=== PATIENT | male | born 1980 | race Native Hawaiian/Other Pacific Islander ===

== ENCOUNTER 2021-03-02 10:11 | Inpatient (IN) | payer OTHER, BC ==
[2021-03-02 10:46] VITALS: BMI 32.5
[2021-03-02 11:34] LABS: HEMATOCRIT 32.2 % (35.4-49); HEMOGLOBIN 10.7 GM/dL (11.7-16.9); MCH 30.5 pg (25.7-33.7); MCHC 33.3 g/dl (32.0-35.9); MEAN CELL VOLUME 91.8 fl (80-96); MEAN PLT VOLUME 6.9 fl (7.5-11.1); PLATELET COUNT 272 10^3/uL (134-434); RBC 3.51 M/mm3 (4.00-5.60); RDW 15.7 % (11.9-15.9); WHITE BLOOD COUNT 3.2 K/mm3 (4.0-10.0)
[2021-03-02 11:42] LABS: INR 1.09 (0.83-1.09); PROTHROMBIN TIME (PATIENT) 13.2 SEC (9.7-13.0)
[2021-03-02 11:54] LABS: CALCIUM 9.6 mg/dL (8.5-10.1)
[2021-03-02 11:55] LABS: ALBUMIN 3.9 g/dl (3.4-5.0); BLOOD UREA NITROGEN 50.5 mg/dL (7-18); MAGNESIUM 1.7 mg/dL (1.8-2.4)
[2021-03-02 11:58] LABS: CREATININE 3.3 mg/dL (0.55-1.3)
[2021-03-02 11:59] LABS: BILIRUBIN,TOTAL 0.7 mg/dL (0.2-1)
[2021-03-02 12:00] LABS: TOT PROT 7.2 g/dl (6.4-8.2)
[2021-03-02 12:03] LABS: LDH 568 U/L (87-246); N-TERMINAL BNP 5507.2 pg/ml (5-125)
[2021-03-02] MEDS ORDERED: DEXTROSE 50%-WATER - 25 GM/50 ML VIAL IVPUSH ONE (12:13)
[2021-03-02] MEDS ORDERED: INSULIN REGULAR HUMAN 100 UNITS/ML *VIAL IVPUSH ONE (12:13)
[2021-03-02] MEDS ORDERED: CALCIUM GLUCONATE 10% - 1,000 MG/10 ML VIAL IVPUSH ONE (12:13)
[2021-03-02 12:15] LABS: VENOUS BASE EXCESS -11.1 mmol/L (-2-2); VENOUS O2 SATURATION 47.7 % (70-80); VENOUS PCO2 38.8 mmHg (38-52); VENOUS PH 7.227 (7.310-7.410)
[2021-03-02] MEDS ORDERED: FUROSEMIDE 40 MG/4 ML INJECTABLE VIAL IVPUSH ONE (12:30)
[2021-03-02] MEDS ORDERED: DEXTROSE 50%-WATER - 25 GM/50 ML VIAL ONE (12:36)
[2021-03-02] MEDS ORDERED: CALCIUM GLUCONATE 10% - 1,000 MG/10 ML VIAL ONE (12:36)
[2021-03-02] MEDS ORDERED: FUROSEMIDE 40 MG/4 ML INJECTABLE VIAL ONE (12:37)
[2021-03-02 12:46] LABS: EPI CELLS 2 /uL (0-25.1); HYALINE CASTS 0 /uL (0-3.1); PH,URINE 6.5 (5.0-8.0); URINE APPEARANCE CLEAR; URINE BACTERIA 0 /uL (0-1359); URINE BILIRUBIN NEGATIVE (NEGATIVE); URINE COLOR YELLOW; URINE GLUCOSE (UA) TRACE (NEGATIVE); URINE KETONE NEGATIVE (NEGATIVE); URINE LEUK ESTERASE NEGATIVE (NEGATIVE); URINE NITRITE NEGATIVE (NEGATIVE); URINE PROTEIN TRACE (NEGATIVE); URINE RBC 3 /uL (0-23.9); URINE UROBILINOGEN 0.2 mg/dL (0.2-1.0); URINE WBC 3 /uL (0-25.8)
[2021-03-02 12:54] LABS: ANISOCYTOSIS 0; HELMET CELLS 0; HOWELL-JOLLY BODIES 0; MACROCYTOSIS 0; OVALOCYTE 0; PLATELET ESTIMATE NORMAL; ROULEAU 0; SICKELED CELLS 0; TARGET CELLS 0; TEAR DROP CELLS 0; TOXIC GRANULATION 0
[2021-03-02] MEDS ORDERED: MAGNESIUM SULF 50% (8.12 MEQ/2 ML-1 GM VIAL) IVPB ONE (17:14)
[2021-03-02] MEDS ORDERED: ALBUTEROL SO4 HFA INHALER IH PRN (17:20)
[2021-03-02] MEDS ORDERED: HEPARIN NA (PORCINE) 5,000 UNITS/ML 1ML VIAL ONE (17:49)
[2021-03-02] MEDS ORDERED: PIPERACILLIN/TAZOB 3.375 GM 3.375 GM in DEXTROSE 5%-WATER - 50 ML IVPB SCH (18:00)
[2021-03-02] MEDS: HEPARIN NA (PORCINE) 5,000 UNITS/ML 1ML VIAL IVPUSH PRN (18:09)
[2021-03-02] MEDS: HEPARIN - 25,000 UNIT in SODIUM CHLORIDE 495 ML IV SCH (18:09)
[2021-03-02] MEDS ORDERED: PIPERACILLIN/TAZOB 3.375 GM 3.375 GM/50 ML BAG IVPB ONE (18:52)
[2021-03-02] MEDS ORDERED: MAGNESIUM SULF 50% (8.12 MEQ/2 ML-1 GM VIAL) ONE (18:52)
[2021-03-02] MEDS: PIPERACILLIN/TAZOB 3.375 GM 3.375 GM in DEXTROSE 5%-WATER - 50 ML IVPB SCH (19:42)
[2021-03-02] MEDS ORDERED: TACROLIMUS ANHYDROUS 5 MG CAPSULE PO SCH (23:15)
[2021-03-02] MEDS ORDERED: CARVEDILOL 12.5 MG TABLET (FP) PO SCH (23:15)
[2021-03-02] MEDS: MYCOPHENOLATE MOFETIL 500 MG TABLET PO SCH (23:30)
[2021-03-03 01:01] LABS: HEMATOCRIT 28.4 % (35.4-49); HEMOGLOBIN 9.5 GM/dL (11.7-16.9); MCH 30.5 pg (25.7-33.7); MCHC 33.5 g/dl (32.0-35.9); MEAN CELL VOLUME 91.2 fl (80-96); PLATELET COUNT 227 10^3/uL (134-434); RBC 3.11 M/mm3 (4.00-5.60); RDW 15.7 % (11.9-15.9); WHITE BLOOD COUNT 2.5 K/mm3 (4.0-10.0)
[2021-03-03] MEDS ORDERED: DEXTROSE 5%-WATER - 50 ML IVPB ONE ×2 (01:53→10:36)
[2021-03-03] MEDS ORDERED: PIPERACILLIN/TAZOBACTAM 3.375 GM VIAL IVPB ONE ×2 (01:53→10:36)
[2021-03-03] MEDS: PIPERACILLIN/TAZOB 3.375 GM 3.375 GM in DEXTROSE 5%-WATER - 50 ML IVPB SCH ×3 (01:57→11:06)
[2021-03-03 03:27] LABS: ANISOCYTOSIS 2+; MACROCYTOSIS 0; PLATELET ESTIMATE NORMAL
[2021-03-03] MEDS: HEPARIN NA (PORCINE) 5,000 UNITS/ML 1ML VIAL IVPUSH PRN ×4 (05:02→23:14)
[2021-03-03] MEDS ORDERED: TACROLIMUS ANHYDROUS 1 MG CAPSULE PO SCH ×3 (07:00→22:00)
[2021-03-03] MEDS ORDERED: CARVEDILOL 12.5 MG TABLET (FP) PO SCH (08:02)
[2021-03-03] MEDS ORDERED: PT OWN MED DRAWER 7, Y5N ONE (08:24)
[2021-03-03 08:52] LABS: HEMATOCRIT 29.2 % (35.4-49); HEMOGLOBIN 9.8 GM/dL (11.7-16.9); MCH 30.7 pg (25.7-33.7); MCHC 33.6 g/dl (32.0-35.9); MEAN CELL VOLUME 91.5 fl (80-96); MEAN PLT VOLUME 7.1 fl (7.5-11.1); PLATELET COUNT 237 10^3/uL (134-434); RBC 3.19 M/mm3 (4.00-5.60); RDW 15.3 % (11.9-15.9); WHITE BLOOD COUNT 2.6 K/mm3 (4.0-10.0)
[2021-03-03] MEDS: MYCOPHENOLATE MOFETIL 500 MG TABLET PO SCH ×4 (09:11→22:13)
[2021-03-03 09:23] LABS: BLOOD UREA NITROGEN 50.2 mg/dL (7-18)
[2021-03-03 09:28] LABS: ALBUMIN 3.5 g/dl (3.4-5.0); CALCIUM 9.5 mg/dL (8.5-10.1); CREATININE 3.8 mg/dL (0.55-1.3)
[2021-03-03 09:29] LABS: BILIRUBIN,TOTAL 0.6 mg/dL (0.2-1); TOT PROT 6.5 g/dl (6.4-8.2)
[2021-03-03] MEDS: DOCUSATE SODIUM 100 MG CAPSULE (FP) PO SCH ×3 (10:41→22:13)
[2021-03-03] MEDS: predniSONE 5 MG TABLET (UD) PO SCH ×2 (10:41→12:22)
[2021-03-03] MEDS: PANTOPRAZOLE 40 MG TABLET PO SCH ×2 (10:41→12:23)
[2021-03-03] MEDS: SODIUM BICARBONATE 650 MG TABLET PO SCH ×3 (10:41→22:13)
[2021-03-03] MEDS: CARVEDILOL 12.5 MG TABLET (FP) PO SCH ×3 (10:41→22:09)
[2021-03-03] MEDS: amLODIPine BESYLATE 5 MG TABLET (FP) PO SCH ×2 (10:42→12:22)
[2021-03-03] MEDS: CINACALCET HCL 30 MG TAB (FP) PO SCH ×2 (10:48→12:23)
[2021-03-03] MEDS: HEPARIN - 25,000 UNIT in SODIUM CHLORIDE 495 ML IV SCH ×2 (12:00→17:50)
[2021-03-03 13:03] LABS: ANISOCYTOSIS 1+; MACROCYTOSIS 0; OVALOCYTE 1+; PLATELET ESTIMATE NORMAL; TEAR DROP CELLS 1+
[2021-03-03] MEDS ORDERED: CARVEDILOL 12.5 MG TABLET (FP) PO ONE (18:02)
[2021-03-03] MEDS ORDERED: ATORVASTATIN CA 10 MG TABLET (FP) PO SCH (22:00)
[2021-03-03] MEDS: TACROLIMUS ANHYDROUS 5 MG, TACROLIMUS ANHYDROUS 2 MG PO SCH (22:13)
[2021-03-04] MEDS ORDERED: PIPERACILLIN/TAZOBACTAM 3.375 GM VIAL IVPB ONE ×3 (03:09→17:08)
[2021-03-04] MEDS ORDERED: DEXTROSE 5%-WATER - 50 ML IVPB ONE ×3 (03:10→17:08)
[2021-03-04] MEDS: PIPERACILLIN/TAZOB 3.375 GM 3.375 GM in DEXTROSE 5%-WATER - 50 ML IVPB SCH ×3 (03:16→18:08)
[2021-03-04 09:03] LABS: HEMATOCRIT 28.6 % (35.4-49); HEMOGLOBIN 9.7 GM/dL (11.7-16.9); MCH 30.5 pg (25.7-33.7); MCHC 33.7 g/dl (32.0-35.9); MEAN CELL VOLUME 90.5 fl (80-96); MEAN PLT VOLUME 7.1 fl (7.5-11.1); PLATELET COUNT 223 10^3/uL (134-434); RBC 3.16 M/mm3 (4.00-5.60); RDW 15.5 % (11.9-15.9); WHITE BLOOD COUNT 2.4 K/mm3 (4.0-10.0)
[2021-03-04 09:20] LABS: MAGNESIUM 1.6 mg/dL (1.8-2.4)
[2021-03-04] MEDS: CARVEDILOL 12.5 MG TABLET (FP) PO SCH (10:37)
[2021-03-04] MEDS: DOCUSATE SODIUM 100 MG CAPSULE (FP) PO SCH (10:40)
[2021-03-04] MEDS: MYCOPHENOLATE MOFETIL 500 MG TABLET PO SCH (10:40)
[2021-03-04] MEDS: TACROLIMUS ANHYDROUS 5 MG, TACROLIMUS ANHYDROUS 2 MG PO SCH (10:41)
[2021-03-04] MEDS: amLODIPine BESYLATE 5 MG TABLET (FP) PO SCH (10:41)
[2021-03-04] MEDS: predniSONE 5 MG TABLET (UD) PO SCH (10:41)
[2021-03-04] MEDS: CINACALCET HCL 30 MG TAB (FP) PO SCH (10:42)
[2021-03-04] MEDS: PANTOPRAZOLE 40 MG TABLET PO SCH (10:42)
[2021-03-04] MEDS: SODIUM BICARBONATE 650 MG TABLET PO SCH (10:42)
[2021-03-04 10:50] LABS: CALCIUM 9.6 mg/dL (8.5-10.1)
[2021-03-04 10:51] LABS: ALBUMIN 3.4 g/dl (3.4-5.0); BLOOD UREA NITROGEN 41.1 mg/dL (7-18)
[2021-03-04] MEDS: HEPARIN - 25,000 UNIT in SODIUM CHLORIDE 495 ML IV SCH ×2 (10:52→15:03)
[2021-03-04 10:54] LABS: PHOSPHOROUS 3.8 mg/dL (2.5-4.9)
[2021-03-04 10:55] LABS: BILIRUBIN,TOTAL 0.5 mg/dL (0.2-1); CREATININE 3.4 mg/dL (0.55-1.3); TOT PROT 6.4 g/dl (6.4-8.2)
[2021-03-04] MEDS: HEPARIN NA (PORCINE) 5,000 UNITS/ML 1ML VIAL IVPUSH PRN (10:56)
[2021-03-04 11:10] LABS: ANISOCYTOSIS 1+; MACROCYTOSIS 0; PLATELET ESTIMATE NORMAL
[2021-03-04 13:56] VITALS: BP 180/100; PULSE 76; TEMP 97.7
[2021-03-04] MEDS: SODIUM ZIRCONIUM CYCLOSILICATE (LOKELMA) 5 GM PACKET PO ONE ×2 (14:09→15:10)
[2021-03-04] MEDS ORDERED: MAGNESIUM OXIDE 400 MG TABLET (FP) PO ONE (15:28)
[2021-03-06 13:11] LABS: TACROLIMUS FK506 BLOOD 9.7 ng/mL (2.0-20.0)
== END 2021-03-04 19:18 | disposition left against medical advice (07) | DRG 698 ==
LOC: JER 10:11 → JERBED 12:31 → J4W 22:27
PROVIDERS: ATTEND Internal Medicine
DX: T86.11 Kidney transplant rejection (principal); N18.6 End stage renal disease; I13.2 Hypertensive heart and chronic kidney disease with heart failure and with stage 5 chronic kidney disease, or end stage renal disease; E87.5 Hyperkalemia; Z99.2 Dependence on renal dialysis; E78.00 Pure hypercholesterolemia, unspecified; E11.22 Type 2 diabetes mellitus with diabetic chronic kidney disease; G47.33 Obstructive sleep apnea (adult) (pediatric); E87.70 Fluid overload, unspecified; R09.02 Hypoxemia; R06.02 Shortness of breath; Z94.0 Kidney transplant status; I50.9 Heart failure, unspecified
CPT/HCPCS: 36415; 71046-TC-FY; 71250-TC; 76775-TC; 80053; 80061; 80180; 80197; 81003; 82436; 82550; 82570; 82728; 82803; 83036; 83615; 83735; 83880; 84100; 84133; 84300; 84443; 84484; 85025; 85027; 85379; 85610; 85730; 86140; 86705; 86706; 87040; 87086; 87517; 87522; 87899; 93005; 93010; 93306-TC; 93970-TC; 94010; 99285-25; C9803; J1644; J7517; U0003; U0005